=== PATIENT | female | born 1945 | race African-American/Black ===

== ENCOUNTER 2019-05-28 16:46 | Emergency (ER) | payer OTHER ==
[2019-05-28 17:11] VITALS: BP 170/97; PULSE 75; TEMP 98.5; BMI 23.8
--- NOTE | 2019-05-28 18:03 | PDOC ---
History of Present Illness - General Chief Complaint: Laceration Stated Complaint: LACERATION/L/HEADL/ARM/L/LEG/PAIN Time Seen by Provider: 05/28/19 17:32 History Source: Patient Exam Limitations: No Limitations - History of Present Illness Initial Comments: 05/28/19 17:58 HISTORY OF PRESENT ILLNESS: 74-year-old woman past medical history of hypertension presents emergency department for evaluation of head trauma while playing with her granddaughter. Patient reports she was playing hide and seek came around a corner a bit too fast causing her to lose her footing falling forward and striking her head on the corner of the wall and sustaining a laceration. She denies any loss of consciousness at the time. She has not felt dizzy or vomited since the injury happened immediately prior to arrival. Patient placed a dressing on her forehead and came to the emergency department for evaluation. Patient is on any anticoagulation. Reports her tetanus is up- to-date as she reviewed this information with her primary doctor on 05/22 during her annual visit. No recent travel or sick contacts. PAST MEDICAL HISTORY: See HPI SURGICAL HISTORY: Denies ALLERGIES: No known drug allergies REVIEW OF SYSTEMS General/Constitutional: Denies fever or chills. Denies weakness, weight change. HEENT: Denies change in vision. Denies ear pain or discharge. Denies sore throat. Cardiovascular: Denies chest pain or shortness of breath. Respiratory: Denies cough, wheezing, or hemoptysis. Gastrointestinal: Denies nausea, vomiting, diarrhea or constipation. Denies rectal bleeding. Genitourinary: Denies dysuria, frequency, or change in urination. Musculoskeletal: Denies joint or muscle swelling or pain. Denies neck or back pain. Skin and breasts: See HPI Neurologic: Denies headache, vertigo, loss of consciousness, or loss of sensation. Psychiatric: Denies depression or anxiety. Endocrine: Denies increased thirst. Denies abnormal weight change. Hematologic/Lymphatic: Denies anemia, easy bleeding, or history of blood clots. Allergic/Immunologic: Denies hives or skin allergy. Denies latex allergy. PHYSICAL EXAM General Appearance: Well-appearing, appropriately dressed. No apparent distress , no intoxication. HEENT: EOMI, PERRLA, normal ENT inspection, normal voice, TMs normal, pharynx normal. No conjunctival pallor. No photophobia, scleral icterus. Neck: Supple. Trachea midline. No tenderness, rigidity, carotid bruit, stridor , lymphadenopathy, or thyromegaly. Vascular Pulses: Dorsalis-Pedis (R): 2+, Dorsalis-Pedis (L): 2+ Musculoskeletal/Extremities: Normal inspection. FROM of all extremities, normal capillary refill. Pelvis Stable. No CVA tenderness. No tenderness to extremities, pedal edema, swelling, erythema or deformity. Abrasion present to the left anterior lower leg. No subcutaneous emphysema is present. Integumentary: Approximate 4.5 cm linear laceration presents to the right forehead extending through the eyebrow. Hemastasis is achieved. Neurologic: set up mechanic crown assembly machine II-XII intact. Fully oriented, alert. Appropriate mood/affect. Motor strength 5/5. No appreciable EOM palsy, facial droop or sensory deficit. Normal [id number] testing is noted. Past History - Past Medical History Allergies/Adverse Reactions: Allergies Allergy/AdvReac Type Severity Reaction Status Date / Time No Known Allergies Allergy Verified 05/28/19 17:07 - Psycho Social/Smoking Cessation Hx Smoking History: Never smoked Information on smoking cessation initiated: No Hx Alcohol Use: No Drug/Substance Use Hx: No *Physical Exam - Vital Signs Last Vital Signs Temp Pulse Resp BP Pulse Ox 98.5 F 75 16 170/97 99 05/28/19 17:07 05/28/19 17:07 05/28/19 17:07 05/28/19 17:07 05/28/19 17:07 Procedures - Consent Consent obtained: Verbal, From Patient - Laceration/Wound Repair Right Anterior Face Wound Length: 2.6 to 5.0 cm Wound Explored: clean Wound's Depth, Shape: into muscle, linear Irrigated w/ Saline: Yes Betadine Prep: Yes Anesthesia: 2% Lidocaine w/ Epi Amount of Anesthetic (ccs): 8 Wound Debrided: minimal Wound Repaired With: Sutures Suture Size/Type: 5:0 Number of Sutures: 6 Layer Closure: Yes Deep Layer Suture Size/Type: 3:0, gut Number of Deep Layer Sutures: 2 Sterile Dressing Applied: Yes Splint Applied: No Progress: 05/28/19 19:33 Patient tolerated well ED Treatment Course - RADIOLOGY Radiology Studies Ordered: Category Date Time Status CERVICAL SPINE CT W/O CONTR [CT] Stat CT Scan 05/28/19 17:[address] WITHOUT CONTRAST [CT] Stat CT Scan 05/28/19 17:49 Ordered Medical Decision Making - Medical Decision Making 05/28/19 18:02 A/P: 74-year-old woman with forehead laceration status post trip and fall Neurologic exam is within normal limits Abrasion present to the left anterior lower leg Approximate 4.5 cm linear laceration present to the right forehead extending through the eyebrow CT scan of the head without contrast CT of the cervical spine without contrast Laceration repair-see procedure note for details Reassess 05/28/19 19:31 CT of the head as read by imaging on-call: No acute skull fracture, intracranial hemorrhage or parenchymal edema demonstrated. There is no acute cortical hemorrhage, edema, infarction, intracranial mass, hydrocephalus or abnormal extra-axial collection. Mild effusion in the right inferior mastoid air cells. No evidence of blood or air for level seen in the paranasal sinus cavities. CT scan of the cervical spine is read imaging on-call: Reversal of the lordotic curvature center head C4-C5. Mild rightward curvature of the cervical spine also noted. No acute fracture, subluxation or abnormal prevertebral soft tissue swelling noted. Facet joints intact and normally aligned. Spinous processes intact. Underlying degenerative disc disease and facet arthropathy noted. Approximate 1.8 cm low-density lesion suggested in the left thyroid lobe. Consider nonemergent thyroid ultrasound correlation. No neck soft tissue hemorrhage or edema is seen. No pneumothorax in the lung apices. Left apical soft tissue nodule 1.5 x 0.9 cm with peripheral calcification seen. Possible chronic granuloma. There may also be a small nodule in the superior segment of the left upper lobe. Recommend a full chest CT evaluation. Discharge home I discussed the physical exam findings, ancillary test results and final diagnoses with the patient. I answered all of the patient's questions. The patient was satisfied with the care received and felt comfortable with the discharge plan and treatment plan. The patient will call their primary care physician within 24 hours to arrange follow-up and will return to the Emergency Department with any new, persistent or worsening symptoms. Portions of this note have been documented using voice recognition software. As a result, errors may occur in the home care aide process. Effort has been made to correct all grammatical and home care aide error, but some may have been missed which may produce sporadic inaccurate home care aide or nonsensical phrases. Discharge - Discharge Information Problems reviewed: Yes Clinical Impression/Diagnosis: Left wrist pain Closed head injury Qualifiers: Encounter type: initial encounter Qualified Code(s): S09.90XA - Unspecified injury of head, initial encounter Facial laceration Qualifiers: Encounter type: initial encounter Qualified Code(s): S01.81XA - Laceration without foreign body of other part of head, initial encounter Fall Qualifiers: Encounter type: initial encounter Qualified Code(s): W19.XXXA - Unspecified fall, initial encounter Condition: Stable Disposition: HOME - Admission No - Follow up/Referral Referrals: ON STAFF,NOT [Primary Care Provider] - - Patient Discharge Instructions Additional Instructions: Keep wound clean and dry Avoid strenuous activity/exercise to create a hot or sweaty environment until sutures are removed Reapply bacitracin ointment 2 times a day until sutures are removed Return to emergency Department or private physician in 5-7 days for suture removal May use Tylenol or Motrin for pain relief Return immediately to emergency department for redness, swelling, pain, or signs of infection - Post Discharge Activity
[2019-05-28] MEDS ORDERED: LIDOCAINE 1%/EPI 1:100000 (20 ML MULTI DOSE VIAL) ONE (19:10)
== END 2019-05-28 19:46 | disposition home or self-care (01) ==
LOC: JER 16:46 → JERFT 16:46
PROC: 0JQ10ZZ Repair Face Subcutaneous Tissue and Fascia, Open Approach (ICD-10-PCS; principal; 2019-05-28)
DX: S01.81XA Laceration without foreign body of other part of head, initial encounter (principal); M25.532 Pain in left wrist; W01.198A Fall on same level from slipping, tripping and stumbling with subsequent striking against other object, initial encounter; Y93.89 Activity, other specified; Y92.038 Other place in apartment as the place of occurrence of the external cause; Y99.8 Other external cause status
CPT/HCPCS: 70450-TC; 72125-TC; 99284-25

== ENCOUNTER 2022-08-31 00:26 | Emergency (ER) | payer OTHER ==
[2022-08-31 00:46] VITALS: BP 147/79; PULSE 68; RESP 18; TEMP 98; BMI 22.8
[2022-08-31] MEDS ORDERED: LIDOCAINE 1%/EPI 1:100000 (50 ML MULTI DOSE VIAL) ONE (01:08)
[2022-08-31] MEDS ORDERED: DIPHTH,PERTUSS(ACELL),TET 0.5 ML DISP.SYRIN IM ONE (02:30)
== END 2022-08-31 02:44 | disposition home or self-care (01) ==
LOC: JER 00:26
PROC: 0HQ1XZZ Repair Face Skin, External Approach (ICD-10-PCS; principal; 2022-08-31)
DX: S01.81XA Laceration without foreign body of other part of head, initial encounter (principal); W22.8XXA Striking against or struck by other objects, initial encounter
CPT/HCPCS: 99282-25

== ENCOUNTER 2022-09-03 16:41 | Emergency (ER) | payer OTHER ==
[2022-09-03 17:05] VITALS: BP 146/88; PULSE 64; RESP 18; TEMP 97.7; BMI 50.5
== END 2022-09-03 17:52 | disposition home or self-care (01) ==
LOC: JERFT 16:41
DX: Z48.00 Encounter for change or removal of nonsurgical wound dressing (principal)
CPT/HCPCS: 99282-25

== ENCOUNTER 2022-09-06 09:31 | Emergency (ER) | payer OTHER ==
[2022-09-06 09:48] VITALS: BP 118/71; PULSE 68; RESP 18; TEMP 98.5; BMI 22.8
== END 2022-09-06 11:25 | disposition home or self-care (01) ==
LOC: JERFT 09:31
DX: Z48.02 Encounter for removal of sutures (principal)
CPT/HCPCS: 99281-25